=== PATIENT | male | born 1955 | race Caucasian/White ===

== ENCOUNTER 2021-08-14 06:02 | Day surgery (SDC) | payer MEDICARE, OTHER ==
[~2021-08-14 06:02] MED LIST: CEFAZOLIN 2 GM-D5W BAG** 2 GM/50 ML ML IV SCH
[2021-08-14] MEDS ORDERED: Lactated Ringers 1,000 ML IV SCH (06:30)
[2021-08-14] MEDS ORDERED: BUPIVACAINE 0.5% VIAL IJ ONE (06:32)
[2021-08-14] MEDS ORDERED: XYLOCAINE 1% HCL 20 ML MDV ONE (06:32)
[2021-08-14] MEDS ORDERED: SUBLIMAZE 100 MCG/2 ML ONE (08:24)
[2021-08-14] MEDS ORDERED: Versed 2 MG/2 ML Injection ONE (08:24)
[2021-08-14] MEDS ORDERED: DIPRIVAN 200 MG/20 ML IV ONE (08:24)
[2021-08-14 10:15] VITALS: O2SAT 95
[2021-08-14 10:30] VITALS: BP 120/68; PULSE 78
--- NOTE | 2021-08-14 11:53 | OP ---
SURGERY DATE/TIME: 08/14/2021 0824 PREOPERATIVE DIAGNOSES: 1) Chronic nonhealing ulceration. 2) Diabetes mellitus. 3) Venous insufficiency. 4) Localized edema. 5) Diabetic peripheral neuropathy. 6) Open wound right foot. POSTOPERATIVE DIAGNOSES: 1) Chronic nonhealing ulceration. 2) Diabetes mellitus. 3) Venous insufficiency. 4) Localized edema. 5) Diabetic peripheral neuropathy. 6) Open wound right foot. PROCEDURE: Right fifth metatarsal osteotomy, floating head osteotomy. SURGEON: Jeffery Mckinley DPM. [employer] DEVELOPER: None. ANESTHESIA: MAC plus local consisting of 20 cc of 1:1 mixture of 1% lidocaine plain and 0.5% bupivacaine plain injected in a mini-Figueroa type block. HEMOSTASIS: Pressure dressing postoperatively. ESTIMATED BLOOD LOSS: Less than 10 cc. MATERIALS: 3-0 Nylon and Constanza boot. INJECTABLES: 20 cc total of a 1:1 mixture of 1% lidocaine plain and 0.5% bupivacaine plain injected in a mini-Figueroa type block. INDICATION FOR SURGERY: Nakul is a very pleasant 66 year-old male who is very well known to my service. We have been seeing him for a number of months in relation to a sub-fifth metatarsal head ulceration that had been healed out in the past. However has presented with recalcitrant to staying healed. At this time we stagnated for over a month in the size of the wound and in order to prevent additional soft tissue osteomyelitic infection more aggressive measures were brought to proceed at this time. The patient understands all risks, benefits and complications of surgical intervention at this time including but not limited to failure of healing, delayed wound healing, delayed bone healing, need for further surgical intervention in the future. The goal for this surgical intervention will be to heal the wound. The patient understands based on the literature that I have presented to him there is an 85% chance of this healing with a 60% chance of the bone in corrected position at dorsal location. However at this time this is not of main concern as the ulceration is more pressing. DESCRIPTION OF PROCEDURE AND FINDINGS: The patient was brought into the OR and placed on OR table in supine position with minimal MAC sedation administered at this time and a thigh tourniquet. The right lower extremity was prepped and draped in typical sterile fashion. At this time preoperative block consisting of 20 cc of 1% lidocaine plain and 0.5% bupivacaine plain were injected in a mini-Figueroa type block. At this time attention was directed under fluoroscopy to the neck of the fifth metatarsal. At this time a small stab incision was made transverse with midline plane in order to introduce sagittal saw blade. At this time the sagittal saw blade was utilized to advance through the metatarsal neck at perpendicular axis to the longitudinal axis of the bone under fluoroscopic guidance. At this time the bone was then finished off using osteotome and freed from its soft tissue attachments this was checked under fluoroscopy and deemed to be mobile. At this time copious amounts of sterile saline were utilized to flush out the surgical site. 3-0 Nylon was utilized in [id number] and simple stitch in order to close the wound. At this time dressings consisting of Betadine, Adaptic, 4x4, Chucky and Constanza boot was applied to the right lower extremity secured with Coban under minimal compression in order to prevent wound dehiscence. In the postoperative area the patient was reversed from anesthesia at this time and returned to the postoperative anesthesia care unit with vital signs stable and vascular status intact. The patient was supplied a CAM boot and is allowed to bear weight to the right lower extremity this week. He has been advised if he is going to drive he has to take the boot off. He was returned to postoperative anesthesia care unit with vital signs stable and vascular status intact. The patient handled the procedure and anesthesia without complication. Postoperative orders as indicated in the patients chart.
--- NOTE | 2021-08-14 17:49 | XRAY ---
Exam: Intraoperative C-arm films of the right foot. Comparison: Right foot radiographs from 05/26/2021. Indication: Right fifth metatarsal osteotomy. Intraoperative fluoroscopy was provided for 32 seconds for fifth metatarsal osteotomy. 2 digital spot images submitted for interpretation demonstrate evidence of distal transverse osteotomy of the right fifth metatarsal neck. Some instrumentation is seen projected over the osteotomy site on one of the images. I again note moderate soft tissue prominence/swelling lateral to the distal fifth metatarsal and base of the right fifth toe. Correlate with intraoperative findings.
--- NOTE | 2021-08-17 16:01 | XRAY ---
32 seconds of fluoroscopy was used in surgery for a right 5th metatarsal osteotomy.
== END 2021-08-14 10:10 | disposition home or self-care (01) ==
LOC: SDC 06:02
PROVIDERS: ATTEND Podiatrist Foot & Ankle Surgery
DX: E11.621 Type 2 diabetes mellitus with foot ulcer (principal); E11.51 Type 2 diabetes mellitus with diabetic peripheral angiopathy without gangrene; I87.2 Venous insufficiency (chronic) (peripheral); I73.9 Peripheral vascular disease, unspecified; L84 Corns and callosities; Z79.899 Other long term (current) drug therapy
CPT/HCPCS: 28308; 73630; 76000; 82947; 93005; J0690; J2250; J2704; J3010